=== PATIENT | female | born 2000 | race Caucasian/White ===

== ENCOUNTER 2019-07-16 01:11 | Emergency (ER) | payer BC ==
[2019-07-16] MEDS ORDERED: SODIUM CHLORIDE 0.9% 1,000 ML IV STA (01:31)
[2019-07-16] MEDS ORDERED: ALBUTEROL NEBULIZED 2.5 MG/3 ML INHALATION STA (01:31)
--- NOTE | 2019-07-16 01:34 | ED ---
SOB HPI - General Chief Complaint: Shortness of Breath Stated Complaint: Chest Pain Time Seen by Provider: 07/16/19 01:16 Source: patient, RN notes reviewed, old records reviewed Mode of arrival: ambulatory Limitations: no limitations - History of Present Illness Initial Comments: 18-year-old female presents with 1 week of cough chest pain or shortness of breath. Patient reports that she saw her primary care doctor they prescribed her azithromycin. She states she has not been taking this. She reports his been a dry cough. She does report a history of marijuana use but denies any history of chronic cigarette smoking. Patient did question this could be related to anxiety. They do report a family history of blood disorder with clot. Deny any other complaints including leg swelling, abdominal pain nausea or vomiting. - Related Data Previous Rx's Medication Instructions Recorded Albuterol Inhaler [Ventolin Hfa 1 - 2 puff INHALATION RT-Q6H PRN 07/16/19 Inhaler] #1 inhaler methylPREDNISolone Dose Pack 4 mg PO DIRECTED #21 package 07/16/19 [Medrol Dose Pack] Allergies Allergy/AdvReac Type Severity Reaction Status Date / Time No Known Allergies Allergy Verified 07/16/19 01:20 Review of Systems ROS Statement: Those systems with pertinent positive or pertinent negative responses have been documented in the HPI. ROS Other: All systems not noted in ROS Statement are negative. Past Medical History Past Medical History: No Reported History History of Any Multi-Drug Resistant Organisms: None Reported Past Surgical History: No Surgical Hx Reported Smoking Status: Never smoker Past Alcohol Use History: Occasional Past Drug Use History: Marijuana General Exam - General Exam Comments Initial Comments: Well-appearing 18-year-old female. No distress. Limitations: no limitations General appearance: alert, in no apparent distress Head exam: Present: atraumatic, normocephalic, normal inspection Eye exam: Present: normal appearance, PERRL, EOMI. Absent: scleral icterus, conjunctival injection, periorbital swelling ENT exam: Present: normal exam, normal oropharynx, mucous membranes moist Neck exam: Present: normal inspection. Absent: tenderness, meningismus, lymphadenopathy Respiratory exam: Present: normal lung sounds bilaterally, other (mild wheeze, complains of tightness with deep breath). Absent: respiratory distress, wheezes, rales, rhonchi, stridor Cardiovascular Exam: Present: regular rate, normal rhythm, normal heart sounds. Absent: systolic murmur, diastolic murmur, rubs, gallop, clicks GI/Abdominal exam: Present: soft, normal bowel sounds. Absent: distended, tenderness, guarding, rebound, rigid Course Vital Signs 07/16/19 07/16/19 07/16/19 01:17 01:41 01:56 Temperature 98.6 F Pulse Rate 99 93 Respiratory 18 18 16 Rate Blood Pressure 142/81 O2 Sat by Pulse 99 Oximetry 07/16/19 07/16/19 02:05 03:05 Temperature 98.0 F Pulse Rate 105 H 92 Respiratory 16 18 Rate Blood Pressure 107/61 O2 Sat by Pulse 99 Oximetry Medical Decision Making - Medical Decision Making 18-year-old female presents for concern for chest pain and cough for the next week. Patient's indescribable bronchospasm and tightening of chest taking a deep breath. With his history we did a workup. Troponin and EKG are normal. D-dimer test was negative. Chest x-ray shows no acute changes. I discussed we can attempt to use inhalers as well as using steroid help with inflammation. Patient is agreeable to this plan. Discussed return parameters. Patient's family understands treatment plan will comply. - Lab Data Result diagrams: 07/16/19 01:55 07/16/19 01:55 Lab Results 07/16/19 07/16/19 07/16/19 Range/Units 01:55 01:55 01:55 WBC 9.0 (4.0-11.0) k/uL RBC 4.14 (3.80-5.40) m/uL Hgb 13.1 (11.4-16.0) gm/dL Hct 39.1 (34.0-46.0) % MCV 94.4 (80.0-100.0) fL MCH 31.5 (25.0-35.0) pg MCHC 33.4 (31.0-37.0) g/dL RDW 12.2 (11.5-15.5) % Plt Count 315 (150-450) k/uL Neutrophils % 63 % Lymphocytes % 28 % Monocytes % 5 % Eosinophils % 1 % Basophils % 1 % Neutrophils # 5.7 (1.3-7.7) k/uL Lymphocytes # 2.5 (1.0-4.8) k/uL Monocytes # 0.5 (0-1.0) k/uL Eosinophils # 0.1 (0-0.7) k/uL Basophils # 0.1 (0-0.2) k/uL PT 11.3 (9.0-12.0) sec INR 1.1 (<1.2) APTT 27.1 (22.0-30.0) sec D-Dimer 0.27 (<0.60) mg/L FEU Sodium 141 (137-145) mmol/L Potassium 3.8 (3.5-5.1) mmol/L Chloride 106 (98-107) mmol/L Carbon Dioxide 24 (22-30) mmol/L Anion Gap 11 mmol/L BUN 19 H (7-17) mg/dL Creatinine 0.75 (0.52-1.04) mg/dL Est GFR (CKD-EPI)AfAm >90 (>60 ml/min/1.73 sqM) Est GFR (CKD-EPI)NonAf >90 (>60 ml/min/1.73 sqM) Glucose 95 (74-99) mg/dL Calcium 9.8 (8.4-10.2) mg/dL Magnesium 2.0 (1.6-2.3) mg/dL Total Bilirubin 0.4 (0.2-1.3) mg/dL AST 23 (14-36) U/L ALT 12 (9-52) U/L Alkaline Phosphatase 65 (38-126) U/L Troponin I (0.000-0.034) ng/mL Total Protein 7.8 (6.3-8.2) g/dL Albumin 4.7 (3.5-5.0) g/dL 07/16/19 Range/Units 01:55 WBC (4.0-11.0) k/uL RBC (3.80-5.40) m/uL Hgb (11.4-16.0) gm/dL Hct (34.0-46.0) % MCV (80.0-100.0) fL MCH (25.0-35.0) pg MCHC (31.0-37.0) g/dL RDW (11.5-15.5) % Plt Count (150-450) k/uL Neutrophils % % Lymphocytes % % Monocytes % % Eosinophils % % Basophils % % Neutrophils # (1.3-7.7) k/uL Lymphocytes # (1.0-4.8) k/uL Monocytes # (0-1.0) k/uL Eosinophils # (0-0.7) k/uL Basophils # (0-0.2) k/uL PT (9.0-12.0) sec INR (<1.2) APTT (22.0-30.0) sec D-Dimer (<0.60) mg/L FEU Sodium (137-145) mmol/L Potassium (3.5-5.1) mmol/L Chloride (98-107) mmol/L Carbon Dioxide (22-30) mmol/L Anion Gap mmol/L BUN (7-17) mg/dL Creatinine (0.52-1.04) mg/dL Est GFR (CKD-EPI)AfAm (>60 ml/min/1.73 sqM) Est GFR (CKD-EPI)NonAf (>60 ml/min/1.73 sqM) Glucose (74-99) mg/dL Calcium (8.4-10.2) mg/dL Magnesium (1.6-2.3) mg/dL Total Bilirubin (0.2-1.3) mg/dL AST (14-36) U/L ALT (9-52) U/L Alkaline Phosphatase (38-126) U/L Troponin I <0.012 (0.000-0.034) ng/mL Total Protein (6.3-8.2) g/dL Albumin (3.5-5.0) g/dL 07/16/19 01:33 EKG performed at 119 shows sinus tachycardia possible left atrial enlargement. Borderline EKG. Ventricular rate of 101 bpm. VA interval is 156 ms. QRS ratio n is 90 ms. QT QTc is 352/456 ms. No evidence of ST elevation. - Radiology Data Radiology results: report reviewed Normal chest x-ray. No acute changes. Disposition Clinical Impression: Bronchospasm with bronchitis, acute Disposition: HOME SELF-CARE Condition: Good Instructions (If sedation given, give patient instructions): Acute Bronchitis (ED) Additional Instructions: Please use medication as discussed. Please follow up with family doctor if symptoms have not improved over the next two days. Please return to the emergency room if your symptoms increase or worsen or for any other concerns. Prescriptions: methylPREDNISolone Dose Pack [Medrol Dose Pack] 4 mg PO DIRECTED #21 package Albuterol Inhaler [Ventolin Hfa Inhaler] 1 - 2 puff INHALATION RT-Q6H PRN #1 inhaler PRN Reason: Shortness Of Breath Is patient prescribed a controlled substance at d/c from ED?: No Referrals: Wendi Tam MD [Primary Care Provider] - 1-2 days Time of Disposition: 02:54
--- NOTE | 2019-07-16 01:53 | XR ---
EXAMINATION TYPE: XR chest 2V DATE OF EXAM: 07/16/2019 COMPARISON: NONE HISTORY: Short of breath TECHNIQUE: Frontal and lateral views of the chest are obtained. FINDINGS: Heart and mediastinum are normal. Lungs are clear. Diaphragm is normal. Bony thorax appear s normal. There are chest leads. IMPRESSION: Normal chest
[2019-07-16 02:11] LABS: Basophils # (A) 0.1 k/uL (0-0.2); Basophils % (A) 1 %; Eosinophils # (A) 0.1 k/uL (0-0.7); Eosinophils % (A) 1 %; HCT 39.1 % (34.0-46.0); HGB 13.1 gm/dL (11.4-16.0); Lymphocytes # (A) 2.5 k/uL (1.0-4.8); Lymphocytes % (A) 28 %; MCH 31.5 pg (25.0-35.0); MCHC 33.4 g/dL (31.0-37.0); MCV 94.4 fL (80.0-100.0); Mean Platelet Volume 5.8; Monocytes # (A) 0.5 k/uL (0-1.0); Monocytes % (A) 5 %; Neutrophils # (A) 5.7 k/uL (1.3-7.7); Neutrophils % (A) 63 %; Platelet Count 315 k/uL (150-450); RBC 4.14 m/uL (3.80-5.40); RDW 12.2 % (11.5-15.5)
[2019-07-16 02:15] LABS: ALT 12 U/L (9-52); AST 23 U/L (14-36); African American GFR (CKD) >90 (>60 ml/min/1.73 sqM); Albumin 4.7 g/dL (3.5-5.0); Alkaline Phosphatase 65 U/L (38-126); Anion Gap 11 mmol/L; Blood Urea Nitrogen 19 mg/dL (7-17); Calcium 9.8 mg/dL (8.4-10.2); Carbon Dioxide 24 mmol/L (22-30); Chloride 106 mmol/L (98-107); Glucose 95 mg/dL (74-99); Potassium 3.8 mmol/L (3.5-5.1); Sodium 141 mmol/L (137-145); Total Bilirubin 0.4 mg/dL (0.2-1.3); Total Protein 7.8 g/dL (6.3-8.2)
[2019-07-16 02:21] LABS: D-Dimer 0.27 mg/L FEU (<0.60); INR 1.1 (<1.2); Partial Thromboplastin Time 27.1 sec (22.0-30.0); Prothrombin Time 11.3 sec (9.0-12.0)
[2019-07-16 03:05] VITALS: BP 107/61; PULSE 92; RESP 18; TEMP 98
== END 2019-07-16 03:05 | disposition home or self-care (01) ==
LOC: EC 01:11
DX: R06.02 Shortness of breath (principal); J20.9 Acute bronchitis, unspecified
CPT/HCPCS: 36415; 71046; 80053; 83735; 84484; 85025; 85379; 85610; 85730; 93005; 94640; 96360; 99285

== ENCOUNTER 2021-08-24 20:47 | Emergency (ER) | payer BC ==
[2021-08-24 21:22] VITALS: BP 115/75; PULSE 98; RESP 18; TEMP 98.1
[2021-08-24] MEDS ORDERED: SODIUM CHLORIDE 0.9% 50 ML IVPB ONE (22:15)
[2021-08-24] MEDS ORDERED: BAMLANIVIMAB (EUA) 700 MG, ETESEVIMAB (EUA) 1,400 MG in SODIUM CHLORIDE 0.9% 50 ML IVPB ONE (22:15)
--- NOTE | 2021-08-24 23:26 | ED ---
Recheck HPI - General Chief Complaint: Recheck/Abnormal Lab/Rx Stated Complaint: COVID+,needs infusion Time Seen by Provider: 08/24/21 21:10 Source: patient Mode of arrival: ambulatory Limitations: no limitations - History of Present Illness Initial Comments: 20-year-old female patient presents to the emergency department today requesting antibody infusion after testing positive for COVID-19. States she started having symptoms about 3 days ago. She reports cough, congestion, body aches, and chills. Denies any known fever. Denies shortness of breath or chest pain. Denies any nausea, vomiting, diarrhea. States she didn't lose taste and smell. States she is able to eat and drink. Denies chance of . - Related Data Home Medications Medication Instructions Recorded Confirmed Acetaminophen Tab [Tylenol Tab] 1,000 mg PO Q6HR PRN 08/24/21 08/24/21 Dextroamphetamine/Amphetamine 20 mg PO TID PRN 08/24/21 08/24/21 [Dextroamp-Amphetamin 20 mg Tab] Allergies Allergy/AdvReac Type Severity Reaction Status Date / Time No Known Allergies Allergy Verified 08/24/21 21:29 Review of Systems ROS Statement: Those systems with pertinent positive or pertinent negative responses have been documented in the HPI. ROS Other: All systems not noted in ROS Statement are negative. Past Medical History Past Medical History: No Reported History History of Any Multi-Drug Resistant Organisms: None Reported Past Surgical History: No Surgical Hx Reported Smoking Status: Vaper Past Alcohol Use History: Occasional Past Drug Use History: Marijuana General Exam Limitations: no limitations General appearance: alert, in no apparent distress, other (Physical well- developed, well-nourished adult female patient in no acute distress. ) ENT exam: Present: normal exam, normal oropharynx, mucous membranes moist Respiratory exam: Present: normal lung sounds bilaterally. Absent: respiratory distress, wheezes, rales, rhonchi, stridor Cardiovascular Exam: Present: regular rate, normal rhythm, normal heart sounds. Absent: systolic murmur, diastolic murmur, rubs, gallop, clicks GI/Abdominal exam: Present: soft, normal bowel sounds. Absent: distended, tenderness, guarding, rebound, rigid Neurological exam: Present: alert, oriented X3, CN II-XII intact Psychiatric exam: Present: normal affect, normal mood Skin exam: Present: warm, dry, intact, normal color. Absent: rash Course Vital Signs 08/24/21 21:03 Temperature 98.1 F Pulse Rate 98 Respiratory 18 Rate Blood Pressure 115/75 O2 Sat by Pulse 98 Oximetry Medical Decision Making - Medical Decision Making 20-year-old female patient presenting requesting monoclonal antibodies after testing positive for COVID-19. Physical examination is unremarkable. Lungs are clear to auscultation with good air movement. She does meet criteria based on her BMI. She received antibody infusion without any difficulties. She'll be discharged pop with her primary care physician for recheck in 1-2 days. Return parameters were discussed in detail. She verbalizes understanding and agrees with this plan. My attending is Dr. Parker. Disposition Clinical Impression: COVID-19 Disposition: HOME SELF-CARE Condition: Good Instructions (If sedation given, give patient instructions): Coronavirus Disease 2019 (COVID-19) Additional Instructions: Follow-up with your primary care physician for recheck in 1-2 days. Return for any new, worsening, or concerning symptoms. Is patient prescribed a controlled substance at d/c from ED?: No Referrals: Wendi Tam MD [Primary Care Provider] - 1-2 days Time of Disposition: 23:26
== END 2021-08-24 23:41 | disposition home or self-care (01) ==
LOC: EC 20:47
DX: U07.1 COVID-19 (principal); F17.290 Nicotine dependence, other tobacco product, uncomplicated; F12.90 Cannabis use, unspecified, uncomplicated
CPT/HCPCS: 96365; 99283; J3490

== ENCOUNTER 2023-10-25 23:37 | Emergency (ER) | payer BC ==
[2023-10-26 00:23] VITALS: BP 111/75; PULSE 100; RESP 18; TEMP 98.5
--- NOTE | 2023-10-26 00:45 | ED ---
General Adult HPI - General Chief complaint: Skin/Abscess/Foreign Body Stated complaint: Lump in left armpit Time Seen by Provider: 10/26/23 00:01 Source: patient Mode of arrival: ambulatory Limitations: no limitations - History of Present Illness Initial comments: 2-year-old female presenting to the ED with a chief complaint of skin problem. Patient notes that she had similar issue like this in the past. Was told that this was 8 AND was prescribed doxycycline. Reports that this improved the past with this. States today, over the past few weeks has had intermittent pain of her right.. States that initially had one large lump in her armpit but notes that it has now decreased in size into 3 smaller lumps. No fever or chills. Patient notes that she has dermatology follow-up in November. No other complaints. - Related Data Home Medications Medication Instructions Recorded Confirmed Acetaminophen Tab [Tylenol Tab] 1,000 mg PO Q6HR PRN 08/24/21 08/24/21 Dextroamphetamine/Amphetamine 20 mg PO TID PRN 08/24/21 08/24/21 [Dextroamp-Amphetamin 20 mg Tab] Previous Rx's Medication Instructions Recorded Doxycycline [Vibramycin] 100 mg PO BID #20 capsule 10/26/23 Allergies Allergy/AdvReac Type Severity Reaction Status Date / Time No Known Allergies Allergy Verified 10/25/23 23:59 Review of Systems ROS Statement: Those systems with pertinent positive or pertinent negative responses have been documented in the HPI. ROS Other: All systems not noted in ROS Statement are negative. Past Medical History Past Medical History: No Reported History History of Any Multi-Drug Resistant Organisms: None Reported Past Surgical History: No Surgical Hx Reported Past Psychological History: No Psychological Hx Reported Smoking Status: Vaper Past Alcohol Use History: Occasional Past Drug Use History: Marijuana General Exam Limitations: no limitations General appearance: alert, in no apparent distress Neck exam: Present: normal inspection Respiratory exam: Present: normal lung sounds bilaterally Cardiovascular Exam: Present: regular rate, normal rhythm GI/Abdominal exam: Present: soft Skin exam: Present: warm, dry, other (Still has 2 small oblong lesions approximately 2 cm long with minimal erythema. Tender to palpation. Not significantly warm.) Course Vital Signs 10/25/23 23:57 Temperature 98.5 F Pulse Rate 100 Respiratory 18 Rate Blood Pressure 111/75 O2 Sat by Pulse 99 Oximetry Medical Decision Making - Medical Decision Making Was pt. sent in by a medical professional or institution ([facility], ENERGY ADVISOR, urgent care, hospital, or long-term...) When possible be specific @ -No Did you speak to anyone other than the patient for history (EMS, parent, family, police, friend...)? What history was obtained from this source @ -No Did you review nursing and triage notes (agree or disagree)? Why? @ -I reviewed and agree with nursing and triage notes Were old charts reviewed (outside hosp., previous admission, EMS record, old EKG, old radiological studies, urgent care reports/EKG's, long-term records)? Report findings @ -No old charts were reviewed Differential Diagnosis (chest pain, altered mental status, abdominal pain women, abdominal pain men, vaginal bleeding, weakness, fever, dyspnea, syncope, headache, dizziness, GI bleed, back pain, seizure, CVA, palpatations, mental health, musculoskeletal)? @ -Cellulitis, MRSA. This is not meant to be an all-inclusive list. EKG interpreted by me (3pts min.). @ -As above X-rays interpreted by me (1pt min.). @ -None done CT interpreted by me (1pt min.). @ -None done U/S interpreted by me (1pt. min.). @ -None done What testing was considered but not performed or refused? (CT, X-rays, U/S, labs)? Why? @ -None What meds were considered but not given or refused? Why? @ -None Did you discuss the management of the patient with other professionals (professionals i.e. [facility], ENERGY ADVISOR, lab, RT, psych nurse, social worker school, spray i painter, teacher, asset protection officer, outsole caser)? Give summary @ -No Was smoking cessation discussed for >3mins.? @ -No Was critical care preformed (if so, how long)? @ -No Were there social determinants of health that impacted care today? How? (Homelessness, low income, unemployed, alcoholism, drug addiction, transportation, low edu. Level, literacy, decrease access to med. care, [facility], rehab)? @ -No Was there de-escalation of care discussed even if they declined (Discuss DNR or withdrawal of care, Hospice)? DNR status @ -No What co-morbidities impacted this encounter? (DM, HTN, Smoking, COPD, CAD, Cancer, CVA, ARF, Chemo, Hep., AIDS, mental health diagnosis, sleep apnea, morbid obesity)? @ -None Was patient admitted / discharged? Hospital course, mention meds given and route, prescriptions, significant lab abnormalities, going to OR and other pertinent info. @ -Discharge 22-year-old female presenting to the ED with complaints of a skin lesion in her axilla. On exam findings consistent with Hidradenitis suppurativa, provided prescription for doxycycline. Patient notes that she has follow-up with dermatology in November. Provided referral to see surgery. Discharged home in stable condition. Discussed return precautions with patient who verbalizes agreement. Undiagnosed new problem with uncertain prognosis? @ -No Drug Therapy requiring intensive monitoring for toxicity (Heparin, Nitro, Insulin, Cardizem)? @ -No Were any procedures done? @ -No Diagnosis/symptom? @ -Hydradenitis suppurativa Acute, or Chronic, or Acute on Chronic? @ -Acute Uncomplicated (without systemic symptoms) or Complicated (systemic symptoms)? @ -Uncomplicated Side effects of treatment? @ -No Exacerbation, Progression, or Severe Exacerbation? @ -No Poses a threat to life or bodily function? How? (Chest pain, [place], [place], pneumonia, PE, COPD, DKA, ARF, appy, cholecystitis, CVA, Diverticulitis, Homicidal, Suicidal, threat to staff... and all critical care pts) @ -No Disposition Clinical Impression: Hidradenitis suppurativa Disposition: HOME SELF-CARE Instructions (If sedation given, give patient instructions): Hidradenitis Suppurativa (ED) Additional Instructions: Please return to the Emergency Department if symptoms worsen or any other concerns. Please follow-up with dermatology and or surgery. Prescriptions: Doxycycline [Vibramycin] 100 mg PO BID #20 capsule Is patient prescribed a controlled substance at d/c from ED?: No Referrals: Nathaniel Moncada MD [Primary Care Provider] - 1-2 days Time of Disposition: 00:50
== END 2023-10-26 00:59 | disposition home or self-care (01) ==
LOC: EC 23:37
DX: L73.2 Hidradenitis suppurativa (principal); F17.290 Nicotine dependence, other tobacco product, uncomplicated; F12.90 Cannabis use, unspecified, uncomplicated
CPT/HCPCS: 99282

== ENCOUNTER 2025-03-17 23:50 | Emergency (ER) | payer BC ==
--- NOTE | 2025-03-18 01:06 | ED ---
Animal Bite HPI - General Chief Complaint: Animal Bite Stated Complaint: Dog Bite Time Seen by Provider: 03/18/25 01:01 Source: patient, RN notes reviewed Mode of arrival: ambulatory Limitations: no limitations - History of Present Illness Initial Comments: 24-year-old female presenting for dog bite to right thumb 2 hours ago. States she was attempting to make contact with a stray dog when it bit her right thumb. She believes it was a pitbull. States the dog did have a collar on but ran away after the encounter. Last tetanus unknown. No other injuries. - Related Data Home Medications Medication Instructions Recorded Confirmed Acetaminophen Tab [Tylenol Tab] 1,000 mg PO Q6HR PRN 08/24/21 08/24/21 Dextroamphetamine/Amphetamine 20 mg PO TID PRN 08/24/21 08/24/21 [Dextroamp-Amphetamin 20 mg Tab] Previous Rx's Medication Instructions Recorded Doxycycline [Vibramycin] 100 mg PO BID #20 capsule 10/26/23 Amoxic-Pot Clav 875-125Mg 1 tab PO Q12HR #20 tab 03/18/25 [Augmentin 875-125] Allergies Allergy/AdvReac Type Severity Reaction Status Date / Time No Known Allergies Allergy Verified 10/25/23 23:59 Review of Systems ROS Statement: Those systems with pertinent positive or pertinent negative responses have been documented in the HPI. ROS Other: All systems not noted in ROS Statement are negative. Past Medical History Past Medical History: No Reported History History of Any Multi-Drug Resistant Organisms: None Reported Past Surgical History: No Surgical Hx Reported Past Psychological History: No Psychological Hx Reported Smoking Status: Vaper Past Alcohol Use History: Occasional Past Drug Use History: None Reported General Exam Limitations: no limitations General appearance: alert, in no apparent distress Head exam: Present: atraumatic, normocephalic, normal inspection Right Forearm Wrist exam: Present: normal inspection, full ROM. Absent: tenderness, swelling, tenderness over anatomical snuff box Hand Wrist exam: Present: tenderness, swelling, abrasion. Absent: normal inspection (There is edema with contusions and overlying nonbleeding abrasion present over dorsal right thumb.), full ROM (Pain with flexion and extension of right thumb..), deformity Vascular: Present: normal capillary refill, radial pulse. Absent: vascular compromise Neurological exam: Present: alert, oriented X3 Psychiatric exam: Present: normal affect, normal mood Skin exam: Present: warm, dry, intact, normal color. Absent: rash Course Vital Signs 03/18/25 00:01 Temperature 98.3 F Pulse Rate 98 Respiratory 16 Rate Blood Pressure 146/92 O2 Sat by Pulse 99 Oximetry Medical Decision Making - Medical Decision Making Was pt. sent in by a medical professional or institution (, [facility], SCOOP OPERATOR, urgent care, hospital, or usp...) When possible be specific @ -No Did you speak to anyone other than the patient for history (EMS, parent, family, police, friend...)? What history was obtained from this source @ -No Did you review nursing and triage notes (agree or disagree)? Why? @ -I reviewed and agree with nursing and triage notes Were old charts reviewed (outside hosp., previous admission, EMS record, old EKG, old radiological studies, urgent care reports/EKG's, usp records)? Report findings @ -No old charts were reviewed Differential Diagnosis (chest pain, altered mental status, abdominal pain women, abdominal pain men, vaginal bleeding, weakness, fever, dyspnea, syncope, headache, dizziness, GI bleed, back pain, seizure, CVA, palpatations, mental health, musculoskeletal)? @ -Differential Musculoskeletal Muscular strain, contusion, ligament sprain, fracture, arthritis, septic arthritis, bursitis, cellulitis, muscle spasm, nerve compression, DVT, arterial occlusion, herpes zoster, electrolyte abnormality, tumor.... This is not meant to be in all inclusive list EKG interpreted by me (3pts min.). @ -None X-rays interpreted by me (1pt min.). @ -X-ray right hand interpreted by me reveals no acute process CT interpreted by me (1pt min.). @ -None done U/S interpreted by me (1pt. min.). @ -None done What testing was considered but not performed or refused? (CT, X-rays, U/S, labs)? Why? @ -None What meds were considered but not given or refused? Why? @ -Recommended rabies vaccine however patient declines Did you discuss the management of the patient with other professionals (professionals i.e. [facility], SCOOP OPERATOR, lab, RT, psych nurse, licensed clinical social worker, tar distillation supervisor, teacher, administrative hearing officer, case technician)? Give summary @ -No Was smoking cessation discussed for >3mins.? @ -No Was critical care preformed (if so, how long)? @ -No Were there social determinants of health that impacted care today? How? (Homelessness, low income, unemployed, alcoholism, drug addiction, transportation, low edu. Level, literacy, decrease access to med. care, [facility], rehab)? @ -No Was there de-escalation of care discussed even if they declined (Discuss DNR or withdrawal of care, Hospice)? DNR status @ -No What co-morbidities impacted this encounter? (DM, HTN, Smoking, COPD, CAD, Cancer, CVA, ARF, Chemo, Hep., AIDS, mental health diagnosis, sleep apnea, morbid obesity)? @ -None Was patient admitted / discharged? Hospital course, mention meds given and route, prescriptions, significant lab abnormalities, going to OR and other pertinent info. @ -Discharge. 24-year-old female presenting for dog bite to right thumb 2 hours ago. There is edema and contusion to right dorsal thumb with overlying non bleeding abrasion. No snuffbox tenderness. Neurovascularly intact. Tetanus was updated. X-ray right hand reveals no acute process. Patient will be provided with outpatient course of Augmentin. Recommended rabies vaccine as this was a stray dog however patient declines. Discussed risks in detail of refusing rabies vaccine at this time including , patient verbalized understanding. Appropriate return precautions and follow-up care/supportive care discussed. Case was discussed with my ED attending Dr. Bruner. Undiagnosed new problem with uncertain prognosis? @ -No Drug Therapy requiring intensive monitoring for toxicity (Heparin, Nitro, Insulin, Cardizem)? @ -No Were any procedures done? @ -No Diagnosis/symptom? @ -Dog bite to right thumb Acute, or Chronic, or Acute on Chronic? @ -Acute Uncomplicated (without systemic symptoms) or Complicated (systemic symptoms)? @ -Uncomplicated Side effects of treatment? @ -No Exacerbation, Progression, or Severe Exacerbation? @ -No Poses a threat to life or bodily function? How? (Chest pain, [place], NH, pneumonia, PE, COPD, DKA, ARF, appy, cholecystitis, CVA, Diverticulitis, Homicidal, Suicidal, threat to staff... and all critical care pts) @ -No Disposition Clinical Impression: Dog bite of right hand Disposition: HOME SELF-CARE Condition: Stable Instructions (If sedation given, give patient instructions): Animal Bite (ED) Additional Instructions: Take Augmentin twice daily for 10 days to prevent infection. Please return to the Emergency Department if symptoms worsen or any other concerns. Prescriptions: Amoxic-Pot Clav 875-125Mg [Augmentin 875-125] 1 tab PO Q12HR #20 tab Is patient prescribed a controlled substance at d/c from ED?: No Referrals: Nathaniel Moncada MD [Primary Care Provider] - 1-2 days Time of Disposition: 03:27
[2025-03-18] MEDS: DIPH,PERTUS(ACELL)TETVAC-LF 0.5 ML VIAL IM ONE (02:00)
[2025-03-18] MEDS: AMOXIC-POT CLAV 875-125MG 1 EACH TAB PO STA (02:00)
[2025-03-18 03:49] VITALS: BP 144/75; PULSE 85; RESP 18; TEMP 98.1
--- NOTE | 2025-03-18 04:10 | XR ---
EXAM: XR Left Hand Complete, 3 or More Views CLINICAL HISTORY: ITS.REASON XR Reason: LEFT thumb injury TECHNIQUE: Frontal, lateral and oblique views of the left hand. COMPARISON: No relevant prior studies available. FINDINGS: Bones/joints: Unremarkable. No acute fracture. No dislocation. Soft tissues: Unremarkable. No radiopaque foreign body. IMPRESSION: No acute fracture.
== END 2025-03-18 03:48 | disposition home or self-care (01) ==
LOC: EC 23:50
DX: S61.051A Open bite of right thumb without damage to nail, initial encounter (principal); F17.290 Nicotine dependence, other tobacco product, uncomplicated; Z23 Encounter for immunization; W54.0XXA Bitten by dog, initial encounter
CPT/HCPCS: 90471; 90715; 99283